=== PATIENT | male | born 1970 | race Caucasian/White ===

== ENCOUNTER 2019-06-16 16:19 | Inpatient (IN) | payer MEDICARE, MEDICAID ==
[~2019-06-16] VITALS: Ht 167.6 cm; Wt 80.3 kg
[2019-06-16] MEDS ORDERED: MORPHINE SULFATE 4 MG/ML CPJ (NOT FOR IM USE) IV STA (18:24)
[2019-06-16] MEDS ORDERED: ONDANSETRON HCL 4MG/2ML INJ IV STA (18:24)
[2019-06-16] MEDS ORDERED: SODIUM CHLORIDE 0.9% 1,000 ML IV ONE (18:24)
[2019-06-16] MEDS ORDERED: PIPERACILLIN/TAZ 3.375G PREMIX 50 ML IV ONE (18:30)
[2019-06-16] MEDS ORDERED: VANCOMYCIN 1 G PREMIX 200 ML IV SCH (18:30)
[2019-06-16 20:18] LABS: BASOPHILS % 0.2 % (0.0-2.0); EOSINOPHILS % 0.2 % (0.0-5.0); HEMATOCRIT. 43.9 % (42.0-52.0); HEMOGLOBIN. 14.4 g/dL (14.0-18.0); LYMPHOCYTES % 13.2 % (20.0-50.0); MEAN CORPUSCULAR HEMOGLOBIN 28.8 pg (28.0-32.0); MEAN CORPUSCULAR VOLUME 87.4 fL (80.0-94.0); MEAN PLATELET VOLUME 9.7 fl (7.4-10.4); MONOCYTES % 9.9 % (2.0-8.0); NEUTROPHILS % 76.5 % (40.0-76.0); PLATELET 223 x1000/uL (130-400); RED BLOOD CELL COUNT 5.02 mill/uL (4.7-6.1); RED CELL DISTRIBUTION WIDTH 13.4 % (11.6-14.6)
[2019-06-16 20:25] LABS: CHLORIDE 98 mEq/L (98-107)
[2019-06-16 20:30] LABS: CLARITY URINE CLEAR (CLEAR); COLOR URINE DARK YELLOW (YELLOW); KETONES URINE NEGATIVE (NEGATIVE); LEUKOCYTE ESTERASE URINE NEGATIVE (NEGATIVE); NITRITE URINE NEGATIVE (NEGATIVE); OCCULT BLOOD URINE NEGATIVE (NEGATIVE); PH URINE 7.5 (4.5-8.0); PROTEIN URINE NEGATIVE (NEGATIVE); SPECIFIC GRAVITY URINE 1.019 (1.005-1.030); UROBILINOGEN URINE >8.0 E.U./dL (0.2-1.0)
[2019-06-16 23:30] VITALS: BP 100/64
[2019-06-17] VITALS: BP 100/64
[2019-06-17 01:25] LABS: BASOPHILS % 0.4 % (0.0-2.0); EOSINOPHILS % 0.5 % (0.0-5.0); HEMATOCRIT. 43.1 % (42.0-52.0); HEMOGLOBIN. 14.2 g/dL (14.0-18.0); LYMPHOCYTES % 18.5 % (20.0-50.0); MEAN CORPUSCULAR HEMOGLOBIN 28.8 pg (28.0-32.0); MEAN CORPUSCULAR VOLUME 87.7 fL (80.0-94.0); MEAN PLATELET VOLUME 9.1 fl (7.4-10.4); MONOCYTES % 10.1 % (2.0-8.0); NEUTROPHILS % 70.5 % (40.0-76.0); PLATELET 215 x1000/uL (130-400); RED BLOOD CELL COUNT 4.92 mill/uL (4.7-6.1); RED CELL DISTRIBUTION WIDTH 13.6 % (11.6-14.6)
[2019-06-17] MEDS ORDERED: ALLO100T MT (02:50)
[2019-06-17] MEDS ORDERED: HYDR-3280 MT (02:50)
[2019-06-17] MEDS ORDERED: COLC0.6C3 MT (02:50)
[2019-06-17] MEDS: HYDROCODONE/ACETAMINOPHEN 5/325MG TABLET PO PRN ×4 (03:18→22:14)
[2019-06-17] MEDS: CEFTRIAXONE 1 G PREMIX 50 ML IV SCH (03:26)
[2019-06-17 04:00] VITALS: BP 107/71
[2019-06-17] MEDS: VANCOMYCIN 750 MG PREMIX 150 ML IV SCH ×3 (05:56→23:44)
[2019-06-17 08:00] VITALS: BP 111/78
[2019-06-17] MEDS ORDERED: PNEUMOCOCCAL 23-VAL P-SAC VAC 0.5 ML IM ONE (08:00)
[2019-06-17] MEDS: ENOXAPARIN 40MG/0.4ML SYR SUBCUT SCH (08:55)
[2019-06-17] MEDS ORDERED: INFLUENZA VIRUS VACCINE(AFLURIA) 0.5ML SYR IM ONE (10:00)
[2019-06-17 12:00] VITALS: BP 102/65
[2019-06-17] MEDS: COLCHICINE 0.6MG TABLET PO SCH ×2 (14:37→20:19)
[2019-06-17 16:00] VITALS: BP 104/57
[2019-06-17 20:00] VITALS: BP 118/74
[2019-06-17] MEDS ORDERED: BISACODYL 5MG TABLET PO PRN (22:30)
[2019-06-17] MEDS ORDERED: NA PHOS,M-B/NA PHOS,DI-BA ENEMA 118ML PR NR (22:45)
[2019-06-18] VITALS (7 sets, daily range): BP systolic 100–134; BP diastolic 62–93
[2019-06-18] MEDS: HYDROCODONE/ACETAMINOPHEN 5/325MG TABLET PO PRN ×3 (05:58→21:05)
[2019-06-18] MEDS: VANCOMYCIN 750 MG PREMIX 150 ML IV SCH (06:49)
[2019-06-18 08:04] LABS: CHLORIDE 105 mEq/L (98-107)
[2019-06-18 08:13] LABS: VANCOMYCIN TROUGH 16.1 ug/mL (5.0-10.0)
[2019-06-18] MEDS: CEFTRIAXONE 1 G PREMIX 50 ML IV SCH (08:32)
[2019-06-18] MEDS: ENOXAPARIN 40MG/0.4ML SYR SUBCUT SCH (08:32)
[2019-06-18] MEDS: COLCHICINE 0.6MG TABLET PO SCH ×2 (08:32→20:44)
[2019-06-18] MEDS: VANCOMYCIN 1 G PREMIX 200 ML IV SCH (20:44)
[2019-06-19] VITALS: BP 112/65
[2019-06-19 04:00] VITALS: BP 108/62
[2019-06-19] MEDS: HYDROCODONE/ACETAMINOPHEN 5/325MG TABLET PO PRN ×2 (04:38→21:59)
[2019-06-19 08:00] VITALS: BP 98/56
[2019-06-19] MEDS: ENOXAPARIN 40MG/0.4ML SYR SUBCUT SCH (08:55)
[2019-06-19] MEDS: COLCHICINE 0.6MG TABLET PO SCH ×2 (08:55→21:58)
[2019-06-19] MEDS: CEFTRIAXONE 1 G PREMIX 50 ML IV SCH (08:56)
[2019-06-19] MEDS: VANCOMYCIN 1 G PREMIX 200 ML IV SCH ×2 (09:38→21:58)
[2019-06-19 12:00] VITALS: BP 102/67
[2019-06-19 16:00] VITALS: BP 110/72
[2019-06-19 20:00] VITALS: BP 105/66
[2019-06-20] VITALS: BP 95/59
[2019-06-20 04:00] VITALS: BP 97/56
[2019-06-20 07:32] LABS: CHLORIDE 104 mEq/L (98-107)
[2019-06-20 08:00] VITALS: BP 101/62
[2019-06-20] MEDS: COLCHICINE 0.6MG TABLET PO SCH ×3 (09:10→21:00)
[2019-06-20] MEDS: ENOXAPARIN 40MG/0.4ML SYR SUBCUT SCH (09:12)
[2019-06-20] MEDS: VANCOMYCIN 1 G PREMIX 200 ML IV SCH ×2 (09:12→20:49)
[2019-06-20 12:00] VITALS: BP 101/64
[2019-06-20 16:00] VITALS: BP 103/78
[2019-06-20 20:00] VITALS: BP 97/65
[2019-06-20] MEDS: HYDROCODONE/ACETAMINOPHEN 5/325MG TABLET PO PRN (20:52)
[2019-06-21] VITALS: BP 100/60
[2019-06-21 04:00] VITALS: BP 95/58
[2019-06-21 08:00] VITALS: BP 98/67
[2019-06-21] MEDS: COLCHICINE 0.6MG TABLET PO SCH ×2 (09:55→18:15)
[2019-06-21] MEDS: ENOXAPARIN 40MG/0.4ML SYR SUBCUT SCH (09:55)
[2019-06-21] MEDS: VANCOMYCIN 1 G PREMIX 200 ML IV SCH (09:55)
[2019-06-21 12:00] VITALS: BP 114/72
[2019-06-21] MEDS: HYDROCODONE/ACETAMINOPHEN 5/325MG TABLET PO PRN ×2 (15:29→22:38)
[2019-06-21 16:00] VITALS: BP 105/71
[2019-06-21 20:00] VITALS: BP 114/76
[2019-06-21 21:05] LABS: BASOPHILS % 1.2 % (0.0-2.0); EOSINOPHILS % 1.9 % (0.0-5.0); HEMOGLOBIN. 15.6 g/dL (14.0-18.0); LYMPHOCYTES % 21.2 % (20.0-50.0); MEAN CORPUSCULAR HEMOGLOBIN 28.8 pg (28.0-32.0); MEAN CORPUSCULAR VOLUME 86.6 fL (80.0-94.0); MEAN PLATELET VOLUME 8.6 fl (7.4-10.4); NEUTROPHILS % 67.7 % (40.0-76.0); PLATELET 308 x1000/uL (130-400); RED BLOOD CELL COUNT 5.43 mill/uL (4.7-6.1); RED CELL DISTRIBUTION WIDTH 13.4 % (11.6-14.6)
[2019-06-21 21:13] LABS: CHLORIDE 105 mEq/L (98-107)
[2019-06-22] VITALS (7 sets, daily range): BP systolic 98–113; BP diastolic 57–75
[2019-06-22] MEDS: ENOXAPARIN 40MG/0.4ML SYR SUBCUT SCH (08:57)
[2019-06-22] MEDS: COLCHICINE 0.6MG TABLET PO SCH (08:57)
[2019-06-23] VITALS: BP 94/62
[2019-06-23] MEDS ORDERED: ACETAMINOPHEN 325MG TABLET PO PRN
[2019-06-23 04:00] VITALS: BP 95/61
[2019-06-23 08:00] VITALS: BP 102/66
[2019-06-23] MEDS: COLCHICINE 0.6MG TABLET PO SCH ×2 (08:47→08:52)
[2019-06-23] MEDS: ENOXAPARIN 40MG/0.4ML SYR SUBCUT SCH (08:47)
[2019-06-23 12:09] VITALS: BP 104/67
[2019-06-23 16:09] VITALS: BP 102/67
[2019-06-23 20:00] VITALS: BP 96/56
[2019-06-23 21:00] LABS: BASOPHILS % 0.7 % (0.0-2.0); EOSINOPHILS % 1.1 % (0.0-5.0); HEMATOCRIT. 46.6 % (42.0-52.0); HEMOGLOBIN. 15.4 g/dL (14.0-18.0); LYMPHOCYTES % 17.9 % (20.0-50.0); MEAN CORPUSCULAR HEMOGLOBIN 28.5 pg (28.0-32.0); MEAN CORPUSCULAR VOLUME 86.6 fL (80.0-94.0); MEAN PLATELET VOLUME 9.2 fl (7.4-10.4); MONOCYTES % 5.7 % (2.0-8.0); NEUTROPHILS % 74.6 % (40.0-76.0); PLATELET 298 x1000/uL (130-400); RED BLOOD CELL COUNT 5.38 mill/uL (4.7-6.1); RED CELL DISTRIBUTION WIDTH 13.4 % (11.6-14.6)
[2019-06-23 21:05] LABS: PROTHROMBIN TIME 10.4 sec (9.6-11.0)
[2019-06-23 21:13] LABS: CHLORIDE 105 mEq/L (98-107)
[2019-06-24] VITALS: BP 99/52
[2019-06-24 01:44] LABS: CLARITY URINE CLEAR (CLEAR); COLOR URINE YELLOW (YELLOW); KETONES URINE NEGATIVE (NEGATIVE); LEUKOCYTE ESTERASE URINE NEGATIVE (NEGATIVE); NITRITE URINE NEGATIVE (NEGATIVE); OCCULT BLOOD URINE NEGATIVE (NEGATIVE); PROTEIN URINE NEGATIVE (NEGATIVE); UROBILINOGEN URINE 0.2 E.U./dL (0.2-1.0)
[2019-06-24 04:00] VITALS: BP 99/63
[2019-06-24 08:00] VITALS: BP 101/62
[2019-06-24] MEDS: COLCHICINE 0.6MG TABLET PO SCH ×2 (09:00→12:51)
[2019-06-24] MEDS: ALLOPURINOL 100 MG TABLET PO SCH ×2 (10:02→17:30)
[2019-06-24] MEDS: ENOXAPARIN 40MG/0.4ML SYR SUBCUT SCH (10:02)
[2019-06-24 12:00] VITALS: BP 114/74
[2019-06-24] MEDS: FAMOTIDINE 40MG TABLET PO SCH ×2 (12:50→20:59)
[2019-06-24 16:00] VITALS: BP 98/59
[2019-06-24] MEDS: HYDROCODONE/ACETAMINOPHEN 5/325MG TABLET PO PRN ×2 (17:37→23:45)
[2019-06-24] MEDS: BACLOFEN 10MG TABLET PO SCH (18:44)
[2019-06-24 20:00] VITALS: BP 93/61
[2019-06-24] MEDS: AMITRIPTYLINE 10MG TABLET PO SCH (20:59)
[2019-06-25] VITALS: BP 100/63
[2019-06-25 04:00] VITALS: BP 91/50
[2019-06-25 08:00] VITALS: BP 97/61
[2019-06-25] MEDS: COLCHICINE 0.6MG TABLET PO SCH (09:44)
[2019-06-25] MEDS: BACLOFEN 10MG TABLET PO SCH ×2 (09:44→17:23)
[2019-06-25] MEDS: FAMOTIDINE 40MG TABLET PO SCH ×2 (09:46→20:29)
[2019-06-25] MEDS: ALLOPURINOL 100 MG TABLET PO SCH ×2 (09:46→17:23)
[2019-06-25] MEDS: HYDROCODONE/ACETAMINOPHEN 5/325MG TABLET PO PRN ×2 (09:54→17:24)
[2019-06-25 12:00] VITALS: BP 100/60
[2019-06-25 16:00] VITALS: BP 98/62
[2019-06-25 20:00] VITALS: BP 114/71
[2019-06-25] MEDS: AMITRIPTYLINE 10MG TABLET PO SCH ×2 (20:29→20:32)
[2019-06-26] VITALS: BP 101/63
[2019-06-26] MEDS: HYDROCODONE/ACETAMINOPHEN 5/325MG TABLET PO PRN (00:17)
[2019-06-26 04:00] VITALS: BP 112/65
[2019-06-26 07:14] LABS: VITAMIN B12 SERUM 1004 pg/mL (211-911)
[2019-06-26 08:00] VITALS: BP 112/73
[2019-06-26] MEDS: COLCHICINE 0.6MG TABLET PO SCH (08:50)
[2019-06-26] MEDS: ALLOPURINOL 100 MG TABLET PO SCH (08:50)
[2019-06-26] MEDS: FAMOTIDINE 40MG TABLET PO SCH (08:50)
[2019-06-26] MEDS: BACLOFEN 10MG TABLET PO SCH (08:50)
== END 2019-06-26 14:25 | disposition home or self-care (01) | DRG 871 ==
LOC: ER 16:29 → 6EST 21:09 → EDBEDREQTM 21:20 → EDBEDREQ 21:20 → EDBEDREQSVC 21:20 → ENRESERV 22:14
PROVIDERS: ADMIT Family Medicine; ATTEND Family Medicine
DX: A41.9 Sepsis, unspecified organism (principal); G82.50 Quadriplegia, unspecified; L03.115 Cellulitis of right lower limb; M10.9 Gout, unspecified; M25.562 Pain in left knee; G93.89 Other specified disorders of brain; M20.11 Hallux valgus (acquired), right foot; M24.574 Contracture, right foot; Z59.0 Homelessness; Z87.828 Personal history of other (healed) physical injury and trauma; Z86.73 Personal history of transient ischemic attack (TIA), and cerebral infarction without residual deficits; Z91.19 Patient's noncompliance with other medical treatment and regimen; Z99.3 Dependence on wheelchair
CPT/HCPCS: 36415; 70150; 72040; 73120; 73502; 73522; 73560; 73562; 73600; 73620; 80048; 80053; 80202; 81003; 82607; 83605; 83880; 84145; 84484; 84550; 85025; 85651; 86140; 90686; 90732; 93005; 93970; 96365; 96366; 96367; 96375; 97110; 97140; 97163; 97530; 97535; 99285; C1893; J0696; J1650; J2270; J2405; J2543; J3370; J7030